=== PATIENT | female | born 2000 | race Two or more races ===

== ENCOUNTER → 2025-08-20 | Outpatient (CLI) | payer BC, SELFPAY ==
--- NOTE | 2025-08-20 10:48 | XR_ITS ---
Examination: Foot, right, 3 views Technique: AP, oblique, lateral views foot, 3 views Date and time of exam: August 20, 2025, 1103 hours INDICATIONS: Right heel pain 1 week. FINDINGS: Normal bone density. 3 mm plantar bony calcaneal spur No fracture or cortical bone destruction IMPRESSION: 3. Millimeter plantar bony calcaneal spur
== END | disposition home or self-care (01) ==
PROVIDERS: PCP Student in an Organized Health Care Education/Training Program; Referring Provider Physician Assistant; Visit Provider Physician Assistant
DX: M77.31 Calcaneal spur, right foot (principal)
CPT/HCPCS: 73630